=== PATIENT | female | born 1970 | race Caucasian/White ===

== ENCOUNTER 2022-12-29 05:29 | Outpatient (CLI) | payer BC ==
[~2022-12-29] VITALS: Ht 165.1 cm; Wt 75.0 kg
[2023-01-02] MEDS ORDERED: ESTR1TAB24 PO (11:53)
[2023-01-02] MEDS ORDERED: LORA-404 PO (11:53)
[2023-01-02] MEDS ORDERED: ESCI-2 PO (11:53)
[2023-01-02] MEDS ORDERED: TRAM50TA3 PO (11:53)
== END 2023-01-02 12:05 ==
LOC: PREOP 05:29
PROVIDERS: ATTEND Otolaryngology Otolaryngology/Facial Plastic Surgery
DX: Z01.818 Encounter for other preprocedural examination (principal)